=== PATIENT | female | born 1985 | race Caucasian/White ===

== ENCOUNTER 2017-05-13 05:25 | Emergency (ER) | payer OTHER ==
[~2017-05-13 05:25] MED LIST: SUBOXONE1 FI1 SL; XAN1 PO
[2017-05-13 06:26] VITALS: BP 120/68
== END 2017-05-13 06:26 | disposition home or self-care (01) ==
LOC: ED 05:25
DX: T78.40XA Allergy, unspecified, initial encounter (principal); M25.572 Pain in left ankle and joints of left foot; M79.672 Pain in left foot; X58.XXXA Exposure to other specified factors, initial encounter

== ENCOUNTER 2017-09-20 03:34 | Emergency (ER) | payer OTHER ==
[~2017-09-20] VITALS: Ht 175.3 cm; Wt 69.0 kg
[2017-09-20 03:48] VITALS: Ht 175.3 cm; Wt 69.0 kg
[2017-09-20 05:27] VITALS: BP 149/78
== END 2017-09-20 05:27 | disposition home or self-care (01) ==
LOC: ED 03:34
DX: F41.0 Panic disorder [episodic paroxysmal anxiety] (principal); M54.41 Lumbago with sciatica, right side; F32.9 Major depressive disorder, single episode, unspecified; Z96.612 Presence of left artificial shoulder joint
CPT/HCPCS: J1885

== ENCOUNTER 2018-11-14 23:02 | Emergency (ER) | payer MEDICAID ==
[~2018-11-14] VITALS: Ht 175.3 cm; Wt 74.4 kg
[2018-11-14 23:09] VITALS: BP 151/93; Ht 175.3 cm; Wt 74.4 kg
== END 2018-11-15 01:16 | disposition home or self-care (01) ==
LOC: ED 23:02
DX: M54.5 Low back pain (principal); G47.00 Insomnia, unspecified; F32.9 Major depressive disorder, single episode, unspecified; Z98.890 Other specified postprocedural states; Z88.5 Allergy status to narcotic agent